=== PATIENT | female | born 1990 | race African-American/Black ===

== ENCOUNTER 2017-05-12 08:49 | Emergency (ER) | payer BC ==
--- NOTE | 2017-05-12 09:53 | RAD ---
PA AND LATERAL CHEST RADIOGRAPH: Date: 05-12-17 History: Cough. Comparison: 11-29-16 FINDINGS: Cardiac silhouette and pulmonary vasculature are within normal limits. Lungs are clear. There has bee n no interval change from the prior study. IMPRESSION: No acute cardiopulmonary process. POS: [facility]
== END 2017-05-12 10:09 | disposition home or self-care (01) ==
LOC: ERS 08:49
DX: J06.9 Acute upper respiratory infection, unspecified (principal); I10 Essential (primary) hypertension; F17.210 Nicotine dependence, cigarettes, uncomplicated; Z79.899 Other long term (current) drug therapy
CPT/HCPCS: 71046

== ENCOUNTER 2017-06-08 14:15 | Emergency (ER) | payer BC, SELFPAY ==
[2017-06-08 16:38] LABS: Pregnancy Test - Urine (BHCG) Negative (Negative); Pregu Control Background? CLEAR/WHITE (CLR/WHITE); Pregu Control Bar Appear? YES (CONTROL BAR)
--- NOTE | 2017-06-08 17:20 | RAD ---
TWO VIEWS OF THE CHEST: 06/08/2017 COMPARISON: 05/12/2017 HISTORY: Cough. FINDINGS: There is no pneumothorax, pleural fluid, focal consolidation, or alveolar edema. Heart and mediastin al contours are unremarkable. Osseous structures are unremarkable. IMPRESSION: No acute findings. POS: [facility]
== END 2017-06-08 17:10 | disposition home or self-care (01) ==
LOC: ERS 14:15
DX: J06.9 Acute upper respiratory infection, unspecified (principal); I10 Essential (primary) hypertension; Z79.899 Other long term (current) drug therapy
CPT/HCPCS: 71046; 81025

== ENCOUNTER 2018-02-09 13:18 | Emergency (ER) | payer SELFPAY ==
--- NOTE | 2018-02-09 13:48 | RAD ---
PA AND LATERAL VIEWS CHEST: Date: 02/09/18 HISTORY: Cough. FINDINGS: Comparison made with exam of 06/08/17. The heart size is normal. The lungs are expanded and clear. The bony thorax is normal. IMPRESSION: Normal exam. POS: [facility]
[2018-02-09] MEDS ORDERED: Acetaminophen 500 MG TAB ONE (14:28)
== END 2018-02-09 14:55 | disposition home or self-care (01) ==
LOC: ERS 13:18
DX: J06.9 Acute upper respiratory infection, unspecified (principal); I10 Essential (primary) hypertension; Z79.899 Other long term (current) drug therapy
CPT/HCPCS: 71046; 87804

== ENCOUNTER 2018-03-10 15:45 | Emergency (ER) | payer SELFPAY ==
[2018-03-10] MEDS ORDERED: Ketorolac Tromethamine 30 MG/ML VIAL ONE (16:08)
== END 2018-03-10 16:32 | disposition home or self-care (01) ==
LOC: ERS 15:45
DX: S16.1XXA Strain of muscle, fascia and tendon at neck level, initial encounter (principal); G44.209 Tension-type headache, unspecified, not intractable; I10 Essential (primary) hypertension; X58.XXXA Exposure to other specified factors, initial encounter
CPT/HCPCS: 96372; J1885

== ENCOUNTER 2018-04-28 21:23 | Emergency (ER) | payer SELFPAY | END 2018-04-28 22:43 | disposition home or self-care (01) | LOC: ERS 21:23 | DX: B34.9 Viral infection, unspecified (principal); F17.210 Nicotine dependence, cigarettes, uncomplicated; I10 Essential (primary) hypertension | CPT/HCPCS: 87804; 99284 ==

== ENCOUNTER 2020-01-05 11:43 | Emergency (ER) | payer SELFPAY ==
[2020-01-05 12:27] LABS: #Basophils 0.1 thou/uL (0.0-0.2); #Eosinphils 0.1 thou/uL (0.0-0.7); #Lymphocytes 2.5 thou/uL (1.20-3.40); #Monocytes 0.9 thou/uL (0.11-0.59); #Neutrophils 8.3 thou/uL (1.40-6.50); %Basophils 0.5 % (0.0-1.0); %Eosinophils 0.6 % (0.0-10.0); %Lymphocytes 21.5 % (21.0-51.0); %Monocytes 7.6 % (0.0-10.0); %Neutrophils 69.8 % (42.0-75.0); Hemoglobin 11.4 g/dL (12.0-16.0); Mean Corpuscular HGB CONC 31.9 g/dL (32.0-36.0); Mean Corpuscular Hemoglobin 27.1 pg (27.0-31.0); Mean Corpuscular Volume 84.8 fL (78.0-98.0); Mean Platelet Volume 8.7 fL (7.4-10.4); Platelet Count 295 thou/uL (130-400); RBC Distribution Width 15.7 % (11.5-14.5); Red Blood Cell (RBC) Count 4.21 mill/uL (4.20-5.40); White Blood Cell (WBC) Count 11.8 thou/uL (4.8-10.8)
[2020-01-05] MEDS ORDERED: Nicotine 14 MG PATCH ONE (12:30)
[2020-01-05 12:43] LABS: ALT (SGPT) 10 U/L (8-55); AST (SGOT) 15 U/L (5-34); Acetaminophen Less than 6.0 mcg/mL (10.0-30.0); Albumin 3.9 g/dL (3.5-5.0); Alcohol Less than 10 mg/dL (Less than 10); Alkaline Phosphatase 74 U/L (40-110); Anion Gap 11 mmol/L (10-20); BUN (Urea Nitrogen) 7 mg/dL (7.0-18.7); Bilirubin, Total 0.3 mg/dL (0.2-1.2); Calc. Creatinine Clearance 0 mL/min (70-130); Calcium 8.4 mg/dL (7.8-10.44); Carbon Dioxide 27 mmol/L (22-29); Chloride 105 mmol/L (98-107); Estimated GFR-MDRD Greater than 90; Globulin 2.7 g/dL (2.4-3.5); Glucose 90 mg/dL (70-105); Potassium 3.7 mmol/L (3.5-5.1); Protein, Total 6.6 g/dL (6.0-8.3); Salicylate Less than 8.0 mg/dL (15.0-30.0); Sodium 139 mmol/L (136-145)
[2020-01-05 13:47] LABS: Bilirubin Negative (Negative); Blood, Urine Negative (Negative); Clarity Turbid (Clear); Glucose, Urine (Dipstick) Normal (Negative); Ketone, Urine Negative (Negative); Leukocyte Negative Leu/uL (Negative); Nitrite Negative (Negative); Protein, Urine (Dipstick) Negative (Neg-Trace); Specific Gravity, Urine 1.013 (1.002-1.036); Urobilinogen Normal mg/dL (Less than 2)
[2020-01-05 13:48] LABS: Pregnancy Test - Urine (BHCG) Negative (Negative); Pregu Control Background? CLEAR/WHITE (CLR/WHITE); Pregu Control Bar Appear? YES (CONTROL BAR); Specific Gravity 1.013 (1.002-1.036)
[2020-01-05 13:58] LABS: Medtox Reader # READER 4; THC/Cannabinoid Screen Detected (NotDetected)
[2020-01-05 13:59] LABS: Amphetamine Not Detected (NotDetected); Barbiturates Screen Not Detected (NotDetected); Benzodiazepine Screen Not Detected (NotDetected); Cocaine Metabolite Screen Detected (NotDetected); Medtox Control Line Valid? VALID (VALID); Methadone Not Detected (NotDetected); Methamphetamine Detected (NotDetected); Opiate Screen Not Detected (NotDetected); Oxycodone Screen Not Detected (NotDetected); Phencyclidine (PCP) Detected (NotDetected); Tricyclic Screen Not Detected (NotDetected)
[2020-01-05] MEDS ORDERED: Ibuprofen 200 MG TAB ONE (17:11)
== END 2020-01-05 17:31 ==
LOC: ERS 11:43
DX: F15.10 Other stimulant abuse, uncomplicated (principal); R44.0 Auditory hallucinations; R45.850 Homicidal ideations; I10 Essential (primary) hypertension; F32.9 Major depressive disorder, single episode, unspecified; F17.210 Nicotine dependence, cigarettes, uncomplicated; Z79.899 Other long term (current) drug therapy
CPT/HCPCS: 36415; 80053; 80306; 80307; 81003; 81025; 84443; 85025; 99285

== ENCOUNTER 2020-12-09 15:32 | Emergency (ER) | payer SELFPAY ==
[2020-12-09 18:57] LABS: #Basophils 0.1 thou/uL (0.0-0.2); #Eosinphils 0.2 thou/uL (0.0-0.7); #Monocytes 1.4 thou/uL (0.11-0.59); #Neutrophils 8.4 thou/uL (1.40-6.50); %Basophils 0.4 % (0.0-1.0); %Eosinophils 1.2 % (0.0-10.0); %Lymphocytes 22.7 % (21.0-51.0); %Neutrophils 64.7 % (42.0-75.0); Hemoglobin 9.3 g/dL (12.0-16.0); Mean Corpuscular HGB CONC 30.5 g/dL (32.0-36.0); Mean Corpuscular Hemoglobin 23.5 pg (27.0-31.0); Mean Corpuscular Volume 77.2 fL (78.0-98.0); Mean Platelet Volume 8.9 fL (7.4-10.4); Platelet Count 367 thou/uL (130-400); RBC Distribution Width 16.5 % (11.5-14.5); Red Blood Cell (RBC) Count 3.95 mill/uL (4.20-5.40)
[2020-12-09 19:01] LABS: BHCG - Serum Negative (NEGATIVE); Pregs Control Background? CLEAR/WHITE (CLR/WHITE); Pregs Control Bar Appear? YES (CONTROL BAR)
[2020-12-09 19:09] LABS: ALT (SGPT) 15 U/L (8-55); AST (SGOT) 16 U/L (5-34); Albumin 3.7 g/dL (3.5-5.0); Alkaline Phosphatase 84 U/L (40-110); Anion Gap 11 mmol/L (10-20); BUN (Urea Nitrogen) 12 mg/dL (7.0-18.7); Bilirubin, Total Less than 0.2 mg/dL (0.2-1.2); Calc. Creatinine Clearance 0 mL/min (70-130); Calcium 8.8 mg/dL (7.8-10.44); Carbon Dioxide 26 mmol/L (22-29); Chloride 107 mmol/L (98-107); Globulin 2.8 g/dL (2.4-3.5); Glucose 75 mg/dL (70-105); Potassium 3.7 mmol/L (3.5-5.1); Protein, Total 6.5 g/dL (6.0-8.3); Sodium 140 mmol/L (136-145)
[2020-12-09 19:20] LABS: Bilirubin Negative (Negative); Blood, Urine Negative (Negative); Clarity Turbid (Clear); Glucose, Urine (Dipstick) Normal (Negative); Ketone, Urine Negative (Negative); Leukocyte Negative Leu/uL (Negative); Nitrite Negative (Negative); Protein, Urine (Dipstick) 10 mg/dL (Neg-Trace); Specific Gravity, Urine 1.028 (1.002-1.036); Urobilinogen Normal mg/dL (Less than 2); pH, Urine 7.5 (5.0-9.0)
[2020-12-09 19:26] LABS: Pregnancy Test - Urine (BHCG) Negative (Negative); Pregu Control Background? CLEAR/WHITE (CLR/WHITE); Pregu Control Bar Appear? YES (CONTROL BAR); Specific Gravity 1.028 (1.002-1.036)
[2020-12-09 19:29] LABS: Amphetamine Not Detected (NotDetected); Barbiturates Screen Not Detected (NotDetected); Benzodiazepine Screen Not Detected (NotDetected); Cocaine Metabolite Screen Detected (NotDetected); Methadone Not Detected (NotDetected); Methamphetamine Not Detected (NotDetected); Opiate Screen Not Detected (NotDetected); Oxycodone Screen Not Detected (NotDetected); Phencyclidine (PCP) Detected (NotDetected); THC/Cannabinoid Screen Not Detected (NotDetected); Tricyclic Screen Not Detected (NotDetected)
[2020-12-09] MEDS ORDERED: Ketorolac Tromethamine 30 MG/ML VIAL ONE (20:17)
== END 2020-12-09 20:45 | disposition home or self-care (01) ==
LOC: ERS 15:32
DX: N93.9 Abnormal uterine and vaginal bleeding, unspecified (principal); I10 Essential (primary) hypertension; F17.210 Nicotine dependence, cigarettes, uncomplicated
CPT/HCPCS: 36415; 80053; 80306; 81003; 81025; 84703; 85025; 96372; 99284; J1885

== ENCOUNTER 2021-09-24 21:25 | Emergency (ER) | payer SELFPAY ==
[2021-09-24] MEDS ORDERED: Ondansetron ODT 4 MG TAB ONE (22:36)
[2021-09-24] MEDS ORDERED: Acetaminophen 500 MG TAB ONE (22:36)
[2021-09-25 00:52] LABS: Bilirubin Negative (Negative); Blood, Urine Negative (Negative); Clarity Clear (Clear); Glucose, Urine (Dipstick) Normal (Negative); Ketone, Urine Negative (Negative); Leukocyte 250 Leu/uL (Negative); Nitrite Negative (Negative); Protein, Urine (Dipstick) Negative (Neg-Trace); RBC/HPF 0-3 HPF (0-3); Specific Gravity, Urine 1.013 (1.002-1.036); Urobilinogen Normal mg/dL (Less than 2); WBC/HPF 0-3 HPF (0-3)
[2021-09-25 00:55] LABS: Bacteria/HPF 1+ HPF (None Seen)
[2021-09-25 00:56] LABS: Pregnancy Test - Urine (BHCG) Negative (Negative); Pregu Control Background? CLEAR/WHITE (CLR/WHITE); Pregu Control Bar Appear? YES (CONTROL BAR); Specific Gravity 1.013 (1.002-1.036)
[2021-09-25 12:48] LABS: Chlamydia by PCR Not Detected (NotDetected); GC by PCR Not Detected (NotDetected)
== END 2021-09-25 00:11 | disposition home or self-care (01) ==
LOC: ERS 21:25
DX: R05.9 Cough, unspecified (principal); N89.8 Other specified noninflammatory disorders of vagina; I10 Essential (primary) hypertension; F17.210 Nicotine dependence, cigarettes, uncomplicated; Z79.899 Other long term (current) drug therapy; Z20.822 Contact with and (suspected) exposure to COVID-19
CPT/HCPCS: 71045; 81003; 81015; 81025; 87491; 87591; 93005; 94640; J7620; Q0162; U0003; U0005

== ENCOUNTER 2021-10-07 22:10 | Emergency (ER) | payer SELFPAY | END 2021-10-08 00:17 | disposition home or self-care (01) | LOC: ERS 22:10 | DX: I10 Essential (primary) hypertension (principal); R51.9 Headache, unspecified; F17.210 Nicotine dependence, cigarettes, uncomplicated; Z79.899 Other long term (current) drug therapy | CPT/HCPCS: 99281 ==

== ENCOUNTER 2021-10-09 18:37 | Emergency (ER) | payer SELFPAY ==
[2021-10-09 20:24] LABS: Pregnancy Test - Urine (BHCG) Negative (Negative); Pregu Control Background? CLEAR/WHITE (CLR/WHITE); Pregu Control Bar Appear? YES (CONTROL BAR)
== END 2021-10-09 21:31 | disposition home or self-care (01) ==
LOC: ERS 18:37
DX: I10 Essential (primary) hypertension (principal); R42 Dizziness and giddiness; F17.200 Nicotine dependence, unspecified, uncomplicated; D64.9 Anemia, unspecified; Z79.899 Other long term (current) drug therapy
CPT/HCPCS: 81025; 99283

== ENCOUNTER 2022-05-05 00:19 | Emergency (ER) | payer SELFPAY | END 2022-05-05 02:00 | disposition left against medical advice (07) | LOC: ERS 00:19 | DX: Z53.21 Procedure and treatment not carried out due to patient leaving prior to being seen by health care provider (principal) ==

== ENCOUNTER 2023-09-03 16:39 | Inpatient (IN) | payer BC, SELFPAY ==
[~2023-09-03 16:39] MED LIST: Iopamidol-370 76% 500 ML MDV (1 ML CHARGE) ONE
[2023-09-03 17:52] LABS: #Basophils 0.05 10x3/uL (0.0-0.2); %Basophils 0.4 % (0.0-1.0); %Eosinophils 2.5 % (0.0-10.0); %Lymphocytes 19.8 % (21.0-51.0); %Monocytes 7.6 % (0.0-10.0); %Neutrophils 69.5 % (42.0-75.0); Hematocrit 38.6 % (36.0-47.0); Hemoglobin 12.4 g/dL (12.0-16.0); Mean Corpuscular HGB CONC 32.1 g/dL (32.0-36.0); Mean Corpuscular Hemoglobin 28.2 pg (27.0-31.0); Mean Corpuscular Volume 87.9 fL (78.0-98.0); Mean Platelet Volume 10.6 fL (7.4-10.4); Platelet Count 292 10x3/uL (130-400); RBC Distribution Width 16.6 % (11.5-14.5); Red Blood Cell (RBC) Count 4.39 mill/uL (4.20-5.40)
[2023-09-03 18:02] LABS: BHCG - Serum Negative (NEGATIVE); Pregs Control Background? CLEAR/WHITE (CLR/WHITE); Pregs Control Bar Appear? YES (CONTROL BAR)
[2023-09-03 18:07] LABS: ALT (SGPT) 23 U/L (8-55); AST (SGOT) 24 U/L (5-34); Acetaminophen Less than 10 mcg/mL (10.0-30.0); Albumin 3.7 g/dL (3.5-5.0); Alcohol Less than 10.0 mg/dL (Less than 10); Alkaline Phosphatase 92 U/L (40-110); Anion Gap 11 mmol/L (10-20); BUN (Urea Nitrogen) 8 mg/dL (7.0-18.7); Bilirubin, Total 0.2 mg/dL (0.2-1.2); CK (CPK) 446 U/L (29-168); Calc. Creatinine Clearance 0 mL/min (70-130); Calcium 9.1 mg/dL (7.8-10.44); Carbon Dioxide 22 mmol/L (22-29); Chloride 106 mmol/L (98-107); Estimated GFR 102; Globulin 3.9 g/dL (2.4-3.5); Glucose 96 mg/dL (70-105); Magnesium 1.8 mg/dL (1.6-2.6); Potassium 3.1 mmol/L (3.5-5.1); Protein, Total 7.6 g/dL (6.0-8.3); Salicylate Less than 8.0 mg/dL (15.0-30.0); Sodium 136 mmol/L (136-145)
[2023-09-03 18:11] LABS: Actual Bicarbonate (HCO3a) 21.4 mEq/L (22-28); Analyzer IN Cardio ER; Base Excess (BEa) -1.8 mEq/L (-2.0 to +3.0); CO2 Tension 31.7 mmHg (35.0-45.0); Calcium, Ionized (arterial) 1.12 mmol/L (1.12-1.30); Carboxyhemoglobin (COHb) 0.3 gm% (0.0-3.0); Hematocrit-ABG 38 % (36.0-47.0); Hemoglobin (Hb) 12.8 g/dL (12.0-16.0); O2 Tension (PaO2), arterial 65.4 mmHg (80.0-100.0); Potassium - ABG Lab 3.25 mmol/L (3.70-5.30); pH, Arterial 7.447 (7.35-7.45)
[2023-09-03 18:12] LABS: Troponin I Less than 0.010 ng/mL (< 0.028)
[2023-09-03 18:37] LABS: ALV-art Gradient 44.705 mmHg (0-20); Puncture Site RRA
[2023-09-03] MEDS ORDERED: Potassium Chloride 20 MEQ (100 mL) BAG ONE (18:58)
[2023-09-03] MEDS ORDERED: levETIRAcetam 500 MG (5 mL) VIAL ONE (19:25)
[2023-09-03 19:35] LABS: Bilirubin Negative (Negative); Blood, Urine Negative (Negative); Glucose, Urine (Dipstick) Negative (Negative); Ketone, Urine Trace mg/dL (Negative); Leukocyte Negative (Negative); Nitrite Negative (Negative); Protein, Urine (Dipstick) Negative (Neg-Trace); Urobilinogen 0.2 mg/dL (Less than 2); pH, Urine 6.5 (5.0-9.0)
[2023-09-03 19:36] LABS: Clarity Clear (Clear)
[2023-09-03 19:41] LABS: Bacteria/HPF None Seen HPF (None Seen); CAUTI Indications for Culture Dysuria,urgency,freq; RBC/HPF 0-3 HPF (0-3); Squamous Epithelial 0-3 HPF (0-3); WBC/HPF 0-3 HPF (0-3)
[2023-09-03 19:42] LABS: Urine Culture Reflex No No
[2023-09-03 19:50] LABS: Amphetamine Detected (NotDetected); Barbiturates Screen Not Detected (NotDetected); Benzodiazepine Screen Not Detected (NotDetected); Cocaine Metabolite Screen Detected (NotDetected); Methadone Not Detected (NotDetected); Methamphetamine Detected (NotDetected); Opiate Screen Not Detected (NotDetected); Oxycodone Screen Not Detected (NotDetected); Phencyclidine (PCP) Detected (NotDetected); THC/Cannabinoid Screen Detected (NotDetected); Tricyclic Screen Not Detected (NotDetected)
[2023-09-03] MEDS ORDERED: Azithromycin 500 MG VIAL ONE (20:55)
[2023-09-03] MEDS ORDERED: Sodium Chloride 0.9% 250 ML 250 ML ONE (20:55)
[2023-09-03] MEDS ORDERED: cefTRIAXone (ROCEPHIN) 2 GM VIAL ONE (20:55)
[2023-09-03] MEDS ORDERED: Etomidate 40 MG (20 mL) VIAL ONE (21:09)
[2023-09-03] MEDS ORDERED: Rocuronium Bromide 10 MG/ML (10ML VIAL) ONE (21:10)
[2023-09-03] MEDS ORDERED: NS 0.9% w/ 40 MEQ KCL 1,000 ML IV SCH (21:15)
[2023-09-03] MEDS ORDERED: Propofol 1,000 MG/100 ML VIAL IV ONE (21:20)
[2023-09-03 21:53] LABS: Actual Bicarbonate (HCO3a) 21.3 mEq/L (22-28); Analyzer IN Cardio ER; Base Excess (BEa) -1.4 mEq/L (-2.0 to +3.0); CO2 Tension 29.9 mmHg (35.0-45.0); Calcium, Ionized (arterial) 1.05 mmol/L (1.12-1.30); Carboxyhemoglobin (COHb) 0.3 gm% (0.0-3.0); Hematocrit-ABG 38 % (36.0-47.0); Hemoglobin (Hb) 12.8 g/dL (12.0-16.0); O2 Tension (PaO2), arterial 390.6 mmHg (80.0-100.0); Potassium - ABG Lab 2.93 mmol/L (3.70-5.30)
[2023-09-03 22:10] LABS: Puncture Site RRA
[2023-09-03] MEDS ORDERED: LORazepam 2 MG/ML SYR.(CARPUJECT) ONE (22:19)
[2023-09-03] MEDS ORDERED: Ondansetron PF 4 MG/2 ML Vial IVP PRN (22:32)
[2023-09-03] MEDS ORDERED: Fentanyl CADD 100 ML IV SCH (23:00)
[2023-09-03] MEDS ORDERED: DISCONTINUE PREVIOUS NARCOTIC PAIN MEDICATIONS AND BENZODIAZEPINES FS SCH (23:00)
[2023-09-03] MEDS ORDERED: Fentanyl BOLUS 250 ML IVPB PRN (23:00)
[2023-09-03] MEDS ORDERED: Propofol BOLUS 1,000 MG/100 ML VIAL IV PRN (23:00)
[2023-09-03] MEDS ORDERED: Electrolyte Replacement Protocol 1 EACH FS PRN (23:06)
[2023-09-03] MEDS ORDERED: Labetalol HCl 100 MG/20 ML VIAL SLOW IVP PRN (23:06)
[2023-09-03] MEDS ORDERED: Dextrose 50% Abboject 50 ML SYRINGE SLOW IVP PRN (23:06)
[2023-09-03] MEDS ORDERED: Glucagon 1 MG/ML KIT IM PRN (23:06)
[2023-09-03] MEDS ORDERED: Dextrose 5% in Water 1,000 ML IV PRN (23:06)
[2023-09-03] MEDS ORDERED: niCARdipine 25 MG in Sodium Chloride 0.9% 250 ML 250 ML IVPB SCH (23:15)
[2023-09-03] MEDS ORDERED: Dexmedetomidine In 0.9 % NaCl 100 ML IVPB SCH (23:15)
[2023-09-03] MEDS: Morphine 2 MG/ML VIAL SLOW IVP PRN (23:26)
[2023-09-03] MEDS: Ventilator Sedation Protocol 1 EACH FS ONE (23:26)
[2023-09-03] MEDS: Lorazepam 2 MG/ML VIAL SLOW IVP PRN (23:26)
[2023-09-03 23:37] VITALS: BMI 19.2
[2023-09-03] MEDS: Magnesium 2 GM/50 ML(in water) 2 GM in Premix 1 BAG IVPB SCH (23:59)
[2023-09-03] MEDS: Lactated Ringer's 1,000 ML IV SCH (23:59)
[2023-09-04 00:14] LABS: Legionella Urinary Ag Negative (Negative); Strep pneumo Urine Ag NEGATIVE (NEGATIVE)
[2023-09-04] MEDS: Propofol 1,000 MG/100 ML VIAL IV PRN (03:11)
[2023-09-04 03:45] LABS: #Basophils 0.04 10x3/uL (0.0-0.2); %Basophils 0.4 % (0.0-1.0); %Lymphocytes 21.8 % (21.0-51.0); %Monocytes 7.6 % (0.0-10.0); Hematocrit 34.3 % (36.0-47.0); Hemoglobin 11.1 g/dL (12.0-16.0); Mean Corpuscular HGB CONC 32.4 g/dL (32.0-36.0); Mean Corpuscular Volume 86.4 fL (78.0-98.0); Mean Platelet Volume 11.4 fL (7.4-10.4); Platelet Count 254 10x3/uL (130-400); Red Blood Cell (RBC) Count 3.97 mill/uL (4.20-5.40)
[2023-09-04 04:05] LABS: ALT (SGPT) 19 U/L (8-55); AST (SGOT) 22 U/L (5-34); Albumin 2.9 g/dL (3.5-5.0); Alkaline Phosphatase 74 U/L (40-110); Anion Gap 10 mmol/L (10-20); BUN (Urea Nitrogen) 4 mg/dL (7.0-18.7); Bilirubin, Total 0.2 mg/dL (0.2-1.2); CK (CPK) 317 U/L (29-168); Calc. Creatinine Clearance 159 mL/min (70-130); Calcium 7.4 mg/dL (7.8-10.44); Carbon Dioxide 19 mmol/L (22-29); Chloride 110 mmol/L (98-107); Estimated GFR 121; Globulin 3.4 g/dL (2.4-3.5); Glucose 102 mg/dL (70-105); Potassium 4.3 mmol/L (3.5-5.1); Protein, Total 6.3 g/dL (6.0-8.3); Sodium 135 mmol/L (136-145)
[2023-09-04] MEDS ORDERED: Pantoprazole 40 MG VIAL IVP SCH (09:00)
[2023-09-04] MEDS: Amlodipine 10 MG TAB PER TUBE SCH (11:14)
[2023-09-04] MEDS: Enoxaparin 40 MG (0.4 mL) SYRINGE SC SCH (11:18)
[2023-09-04] MEDS: Famotidine 20 MG TAB PER TUBE SCH (11:18)
[2023-09-04] MEDS: Dexamethasone 4 mg/ml Vial SLOW IVP SCH (12:32)
[2023-09-04] MEDS: cefTRIAXone\\ROCEPHIN 2 GM in Sodium Chloride 0.9% 100 ML IVPB SCH (20:57)
[2023-09-04] MEDS: Azithromycin 500 MG in Sodium Chloride 0.9% 250 ML 250 ML IVPB SCH (22:49)
[2023-09-05 07:52] LABS: #Basophils 0.03 10x3/uL (0.0-0.2); #Eosinphils Less than 0.03 10x3/uL (0.0-0.7); %Basophils 0.2 % (0.0-1.0); %Eosinophils 0.1 % (0.0-10.0); %Lymphocytes 14.7 % (21.0-51.0); %Monocytes 6.8 % (0.0-10.0); %Neutrophils 77.9 % (42.0-75.0); Hematocrit 35.9 % (36.0-47.0); Hemoglobin 11.7 g/dL (12.0-16.0); Mean Corpuscular HGB CONC 32.6 g/dL (32.0-36.0); Mean Corpuscular Hemoglobin 28.3 pg (27.0-31.0); Mean Corpuscular Volume 86.9 fL (78.0-98.0); Mean Platelet Volume 11.4 fL (7.4-10.4); Platelet Count 153 10x3/uL (130-400); RBC Distribution Width 16.7 % (11.5-14.5); Red Blood Cell (RBC) Count 4.13 mill/uL (4.20-5.40)
[2023-09-05 08:05] LABS: ALT (SGPT) 18 U/L (8-55); AST (SGOT) 20 U/L (5-34); Albumin 2.8 g/dL (3.5-5.0); Alkaline Phosphatase 76 U/L (40-110); Anion Gap 12 mmol/L (10-20); BUN (Urea Nitrogen) 7 mg/dL (7.0-18.7); Bilirubin, Total 0.3 mg/dL (0.2-1.2); Calc. Creatinine Clearance 157 mL/min (70-130); Calcium 8.1 mg/dL (7.8-10.44); Carbon Dioxide 23 mmol/L (22-29); Chloride 107 mmol/L (98-107); Estimated GFR 120; Globulin 3.4 g/dL (2.4-3.5); Glucose 85 mg/dL (70-105); Potassium 3.5 mmol/L (3.5-5.1); Protein, Total 6.2 g/dL (6.0-8.3); Sodium 138 mmol/L (136-145)
[2023-09-05] MEDS: Potassium Chloride 20 MEQ TAB PO SCH (10:59)
[2023-09-05] MEDS ORDERED: DC Sedation Protocol FS PRN (12:19)
[2023-09-05] MEDS: Ipratropium/Albuterol 3 ML NEB NEB PRN (21:49)
[2023-09-05 22:14] LABS: Potassium 4.1 mmol/L (3.5-5.1)
[2023-09-06 04:56] LABS: #Basophils 0.06 10x3/uL (0.0-0.2); %Basophils 0.6 % (0.0-1.0); %Eosinophils 1.3 % (0.0-10.0); %Lymphocytes 32.1 % (21.0-51.0); %Neutrophils 57.6 % (42.0-75.0); Hematocrit 38.6 % (36.0-47.0); Hemoglobin 12.7 g/dL (12.0-16.0); Mean Corpuscular HGB CONC 32.9 g/dL (32.0-36.0); Mean Corpuscular Hemoglobin 28.6 pg (27.0-31.0); Mean Corpuscular Volume 86.9 fL (78.0-98.0); Platelet Count 133 10x3/uL (130-400); RBC Distribution Width 16.8 % (11.5-14.5); Red Blood Cell (RBC) Count 4.44 mill/uL (4.20-5.40)
[2023-09-06 05:35] LABS: ALT (SGPT) 26 U/L (8-55); AST (SGOT) 25 U/L (5-34); Albumin 3.2 g/dL (3.5-5.0); Alkaline Phosphatase 81 U/L (40-110); Anion Gap 16 mmol/L (10-20); BUN (Urea Nitrogen) 4 mg/dL (7.0-18.7); Bilirubin, Total 0.2 mg/dL (0.2-1.2); Calc. Creatinine Clearance 144 mL/min (70-130); Carbon Dioxide 21 mmol/L (22-29); Chloride 104 mmol/L (98-107); Estimated GFR 118; Glucose 73 mg/dL (70-105); Potassium 3.9 mmol/L (3.5-5.1); Protein, Total 7.2 g/dL (6.0-8.3); Sodium 137 mmol/L (136-145)
[2023-09-06] MEDS: methylPREDNISolone Sod Succ 40 MG VIAL IVP SCH (16:33)
[2023-09-06] MEDS: Acetaminophen 325 MG TAB PO PRN (22:33)
[2023-09-07 06:34] LABS: #Basophils 0.04 10x3/uL (0.0-0.2); #Eosinphils Less than 0.03 10x3/uL (0.0-0.7); %Basophils 0.2 % (0.0-1.0); %Lymphocytes 7.7 % (21.0-51.0); %Monocytes 5.7 % (0.0-10.0); %Neutrophils 85.9 % (42.0-75.0); Hematocrit 41.1 % (36.0-47.0); Hemoglobin 13.5 g/dL (12.0-16.0); Mean Corpuscular HGB CONC 32.8 g/dL (32.0-36.0); Mean Corpuscular Hemoglobin 28.5 pg (27.0-31.0); Mean Corpuscular Volume 86.7 fL (78.0-98.0); Mean Platelet Volume 11.8 fL (7.4-10.4); Platelet Count 193 10x3/uL (130-400); RBC Distribution Width 16.4 % (11.5-14.5); Red Blood Cell (RBC) Count 4.74 mill/uL (4.20-5.40)
[2023-09-07 07:33] LABS: Anion Gap 15 mmol/L (10-20); BUN (Urea Nitrogen) 7 mg/dL (7.0-18.7); Calc. Creatinine Clearance 153 mL/min (70-130); Calcium 9.6 mg/dL (7.8-10.44); Carbon Dioxide 22 mmol/L (22-29); Chloride 105 mmol/L (98-107); Estimated GFR 119; Glucose 104 mg/dL (70-105); Potassium 4.3 mmol/L (3.5-5.1); Sodium 138 mmol/L (136-145)
[2023-09-07] MEDS: predniSONE 20 MG TAB PO SCH (10:36)
[2023-09-08 05:19] LABS: #Basophils 0.05 10x3/uL (0.0-0.2); %Basophils 0.3 % (0.0-1.0); %Eosinophils 0.5 % (0.0-10.0); %Lymphocytes 16.8 % (21.0-51.0); %Monocytes 5.6 % (0.0-10.0); %Neutrophils 76.4 % (42.0-75.0); Hematocrit 39.8 % (36.0-47.0); Hemoglobin 12.9 g/dL (12.0-16.0); Mean Corpuscular HGB CONC 32.4 g/dL (32.0-36.0); Mean Corpuscular Hemoglobin 27.4 pg (27.0-31.0); Mean Corpuscular Volume 84.7 fL (78.0-98.0); Mean Platelet Volume 11.3 fL (7.4-10.4); Platelet Count 284 10x3/uL (130-400); RBC Distribution Width 16.5 % (11.5-14.5)
[2023-09-08 05:47] LABS: Anion Gap 14 mmol/L (10-20); BUN (Urea Nitrogen) 10 mg/dL (7.0-18.7); Calc. Creatinine Clearance 150 mL/min (70-130); Carbon Dioxide 25 mmol/L (22-29); Chloride 101 mmol/L (98-107); Estimated GFR 119; Glucose 83 mg/dL (70-105); Potassium 4.1 mmol/L (3.5-5.1); Sodium 136 mmol/L (136-145)
[2023-09-08 11:26] VITALS: BMI 27.2
[2023-09-08] MEDS: Doxycycline 100 MG CAP PO SCH (20:43)
[2023-09-09 04:24] LABS: #Basophils 0.06 10x3/uL (0.0-0.2); %Basophils 0.5 % (0.0-1.0); %Eosinophils 1.9 % (0.0-10.0); %Lymphocytes 31.5 % (21.0-51.0); %Monocytes 9.6 % (0.0-10.0); Hematocrit 42.8 % (36.0-47.0); Hemoglobin 13.8 g/dL (12.0-16.0); Mean Corpuscular HGB CONC 32.2 g/dL (32.0-36.0); Mean Corpuscular Hemoglobin 28.1 pg (27.0-31.0); Mean Corpuscular Volume 87.2 fL (78.0-98.0); Platelet Count 307 10x3/uL (130-400); RBC Distribution Width 16.6 % (11.5-14.5); Red Blood Cell (RBC) Count 4.91 mill/uL (4.20-5.40)
[2023-09-09 04:36] LABS: Anion Gap 13 mmol/L (10-20); BUN (Urea Nitrogen) 15 mg/dL (7.0-18.7); Calc. Creatinine Clearance 134 mL/min (70-130); Calcium 9.2 mg/dL (7.8-10.44); Carbon Dioxide 27 mmol/L (22-29); Chloride 99 mmol/L (98-107); Estimated GFR 108; Glucose 99 mg/dL (70-105); Potassium 3.7 mmol/L (3.5-5.1); Sodium 135 mmol/L (136-145)
[2023-09-09] MEDS ORDERED: Albuterol 200 PUFF (6.7GM INHALER) INH PRN (08:20)
[2023-09-09] MEDS: predniSONE 20 MG TAB PO SCH (08:39)
[2023-09-09 09:42] VITALS: TEMP 98.2
[2023-09-09 12:12] VITALS: BP 109/78
== END 2023-09-09 12:39 | disposition home or self-care (01) | DRG 871 ==
LOC: ERS 16:39 → EEVIPCON 22:07 → CCU 22:07 → 2SE 09-05 19:42
PROVIDERS: ADMIT Internal Medicine; ATTEND Internal Medicine Critical Care Medicine
PROC: 0T9B70Z Drainage of Bladder with Drainage Device, Via Natural or Artificial Opening (ICD-10-PCS; principal; 2023-09-03)
PROC: 0BH17EZ Insertion of Endotracheal Airway into Trachea, Via Natural or Artificial Opening (ICD-10-PCS; 2023-09-03)
PROC: 4A133R1 Monitoring of Arterial Saturation, Peripheral, Percutaneous Approach (ICD-10-PCS; 2023-09-03)
PROC: 3E03329 Introduction of Other Anti-infective into Peripheral Vein, Percutaneous Approach (ICD-10-PCS; 2023-09-03)
PROC: 5A1935Z Respiratory Ventilation, Less than 24 Consecutive Hours (ICD-10-PCS; 2023-09-04)
PROC: 4A00X4Z Measurement of Central Nervous Electrical Activity, External Approach (ICD-10-PCS; 2023-09-06)
DX: A41.9 Sepsis, unspecified organism (principal); G92.8 Other toxic encephalopathy; J18.9 Pneumonia, unspecified organism; J96.01 Acute respiratory failure with hypoxia; E87.6 Hypokalemia; F16.10 Hallucinogen abuse, uncomplicated; I10 Essential (primary) hypertension; Z98.890 Other specified postprocedural states; F41.9 Anxiety disorder, unspecified; F31.9 Bipolar disorder, unspecified; I16.0 Hypertensive urgency; F19.10 Other psychoactive substance abuse, uncomplicated
CPT/HCPCS: 36415; 36416; 36556; 36600; 51702; 70450; 70551; 71045; 71275; 80048; 80053; 80306; 80307; 81001; 82550; 82805; 83605; 83735; 83880; 84146; 84484; 84703; 85025; 87040; 87449; 87899; 93005; 94002; 94003; 94640; 95700; 95711; 95819; 96374; 96375; J0456; J0696; J1100; J1650; J1953; J2060; J2272; J2704; J2920; J3475; J3480; J3490; J7050; J7120; J7512; J7620; Q9967